=== PATIENT | female | born 1990 | race Caucasian/White ===

== ENCOUNTER → 2018-04-19 | Outpatient (CLI) | payer BC ==
[2018-04-19 10:00] LABS: URINE CREATININE FOR RATIO 41 MG/DL (30-125); URINE PROTEIN FOR RATIO ONLY < 6 MG/DL (6-12)
== END ==
LOC: LABNPT 08:50
PROVIDERS: ATTEND Obstetrics & Gynecology
DX: O28.8 Other abnormal findings on antenatal screening of mother (principal)
CPT/HCPCS: 82570; 84156

== ENCOUNTER 2018-04-25 04:54 | Inpatient (IN) | payer BC | END 2018-04-27 14:15 | disposition home or self-care (01) | LOC: WSo 04:54 → LDRP 04:55 → WSo 05:18 → LDRP 05:18 ==

== ENCOUNTER 2020-07-14 15:58 | Emergency (ER) | payer OTHER ==
[~2020-07-14] VITALS: Ht 172 cm; Wt 99.7 kg
[~2020-07-14 15:58] MED LIST: DOCU-143 PO; IBUP-1780 PO; OXYC1TAB87 PO; PREN-142 PO
--- NOTE | 2020-07-14 16:24 | ED GU-Female ---
General Chief Complaint: Female Reproductive Stated Complaint: RIGHT SIDE PAIN Source: patient Exam Limitations: no limitations History of Present Illness Date Seen by Provider: Jul 14, 2020 Time Seen by Provider: 16:15 Initial Comments 29-year-old G2, P1 at 28 weeks presents with right upper quadrant pain since this morning. Pain is persistent, wax and wanes with some mild associated nausea without vomiting. Her last bowel movement was yesterday. Denies any recent illness fever chills. Denies uterine cramping or loss of fluid or vaginal bleeding. Followed by OB in [place] Allergies and Home Medications Allergies Coded Allergies: No Known Drug Allergies (Unverified , 07/14/20) Patient Home Medication List Home Medication List Reviewed: Yes Review of Systems Review of Systems Constitutional: No fever, No malaise, No weakness Respiratory: No cough, No short of breath Cardiovascular: No chest pain, No edema, No palpitations, No syncope Gastrointestinal: RUQ, abdominal pain; No constipation, No diarrhea, No loss of appetite; nausea; No vomiting Genitourinary: denies dysuria, denies frequency, denies flank pain, denies hem aturia Musculoskeletal: No back pain, No joint pain Skin: No change in color, No rash Psychiatric/Neurological: Denies Headache, Denies Numbness, Denies Paresthesia Past Xiopkxk-Aoauej-Avlwqm Hx Past Med/Social Hx: Reviewed Nursing Past Med/Soc Hx Physical Exam Vital Signs Vital Signs - First Documented 07/14/20 16:20 Temp 36.9 Pulse 112 Resp 16 B/P (MAP) 145/87 (106) Pulse Ox 98 Capillary Refill : Height, Weight, BMI Height: '" Weight: lbs. oz. kg; BMI Method: General Appearance: WD/WN, no apparent distress Cardiovascular: regular rate, rhythm, no edema, no JVD Respiratory: chest non-tender, lungs clear, normal breath sounds, no respiratory distress, no accessory muscle use Gastrointestinal: soft, no organomegaly, no pulsatile mass; No distended, No guarding, No rebound; tenderness (RUQ); No mass Progress/Results/Core Measures Suspected Sepsis SIRS Temperature: Pulse: Respiratory Rate: Blood Pressure / Mean: Results/Orders Lab Results Laboratory Tests Test 07/14/20 16:00 Range/Units Urine Color YELLOW Urine Clarity SLIGHTLY CLOUDY Urine pH 6.0 5-9 Urine Specific [place] >=1.030 1.016-1.022 Urine Protein NEGATIVE NEGATIVE Urine Glucose (UA) NEGATIVE NEGATIVE Urine Ketones TRACE H NEGATIVE Urine Nitrite NEGATIVE NEGATIVE Urine Bilirubin NEGATIVE NEGATIVE Urine Urobilinogen 0.2 < = 1.0 MG/DL Urine Leukocyte Esterase NEGATIVE NEGATIVE Urine RBC (Auto) NEGATIVE NEGATIVE Urine RBC 0-2 /HPF Urine WBC 2-5 /HPF Urine Squamous Epithelial Cells 25-50 H /HPF Urine Crystals NONE /LPF Urine Bacteria FEW H /HPF Urine Casts NONE /LPF Urine Mucus LARGE H /LPF Urine Culture Indicated NO My Orders Orders - INDRA BIANCHI DO Urinalysis (07/14/20 16:35) Vital Signs/I&O 07/14/20 07/14/20 16:20 16:47 Temp 36.9 36.9 Pulse 112 112 Resp 16 16 B/P (MAP) 145/87 (106) 145/87 (106) Pulse Ox 98 98 Capillary Refill : Progress Note : Progress Note Called her OB and Dr fabrication operator for L&D, Dr Valenzuela- will consult through L&D. Patients transported via private vehicle. VSS, well appearing. HR- 140's Departure Impression Primary Impression: Abdominal pain in Qualified Codes: O26.892 - Other specified related conditions, second trimester; R10.9 - Unspecified abdominal pain Disposition: 30 STILL A PATIENT (transferring by POV to [facility] L&D) Condition: Stable Departure-Patient Inst. Referrals: ESTHELA MANCUSO MD (PCP/Family) Primary Care Physician INDRA BIANCHI DO Jul 14, 2020 16:23
[2020-07-14 16:37] LABS: CLARITY,URINE SLIGHTLY CLOUDY; COLOR,URINE YELLOW
[2020-07-14 16:38] LABS: BACTERIA,URINE FEW /HPF; BILIRUBIN,URINE NEGATIVE (NEGATIVE); GLUCOSE, URINE (UA) NEGATIVE (NEGATIVE); KETONES,URINE TRACE (NEGATIVE); LEUKOCYTE ESTERASE ,URINE NEGATIVE (NEGATIVE); NITRITE,URINE NEGATIVE (NEGATIVE); PROTEIN,URINE NEGATIVE (NEGATIVE); RBC,URINE 0-2 /HPF; SQUAMOUS EPITHELIAL CELL,UR 25-50 /HPF
[2020-07-14 16:47] VITALS: BP 145/87
== END 2020-07-14 16:47 | disposition still patient (30) ==
LOC: ER FS 16:02 → MERGE 16:02 → ER FS 16:47
DX: O26.892 Other specified pregnancy related conditions, second trimester (principal); R10.11 Right upper quadrant pain; Z3A.28 28 weeks gestation of pregnancy
CPT/HCPCS: 81000

== ENCOUNTER 2020-07-14 17:24 | Outpatient (CLI) | payer BC ==
[~2020-07-14] VITALS: Ht 170.2 cm; Wt 103.4 kg
[2020-07-14 17:45] VITALS: BP 110/63
[2020-07-14] MEDS ORDERED: DICYCLOMINE 10 MG (BENTYL) CAP PO ONE (18:15)
[2020-07-14 18:42] LABS: BASOPHILS % (AUTO) 0 % (0-10); EOSINOPHILS % (AUTO) 0 % (0-10); HEMATOCRIT 34 % (35-52); HEMOGLOBIN 11.5 g/dL (11.5-16.0); LYMPHOCYTES # (AUTO) 2.1 10^3/uL (1.0-4.0); LYMPHOCYTES % (AUTO) 19 % (12-44); MEAN CORPUSCULAR HEMOGLOBIN 30 pg (25-34); MEAN CORPUSCULAR HGB CONC 34 g/dL (32-36); MEAN CORPUSCULAR VOLUME 87 fL (80-99); MEAN PLATELET VOLUME 11.3 fL (9.0-12.2); MONOCYTES # (AUTO) 0.5 10^3/uL (0.0-1.0); MONOCYTES % (AUTO) 5 % (0-12); NEUTROPHILS # (AUTO) 8.2 10^3/uL (1.8-7.8); NEUTROPHILS % (AUTO) 75 % (42-75); PLATELET COUNT 214 10^3/uL (130-400); WHITE BLOOD COUNT 10.8 10^3/uL (4.3-11.0)
[2020-07-14 19:06] LABS: ALANINE AMINOTRANSFERASE 19 U/L (0-55); ALBUMIN 3.6 GM/DL (3.2-4.5); ALKALINE PHOSPHATASE 55 U/L (40-136); BILIRUBIN,TOTAL 0.2 MG/DL (0.1-1.0); BUN/CREATININE RATIO 10; CALCIUM 8.8 MG/DL (8.5-10.1); CARBON DIOXIDE 20 MMOL/L (21-32); CHLORIDE 107 MMOL/L (98-107); CREATININE SERUM 0.58 MG/DL (0.60-1.30); GFR ESTIMATED > 60; GLUCOSE 105 MG/DL (70-105); POTASSIUM 3.6 MMOL/L (3.6-5.0); SODIUM 140 MMOL/L (135-145); TOTAL PROTEIN 6.6 GM/DL (6.4-8.2)
--- NOTE | 2020-07-16 07:54 | Physician Query-Final Dx ---
ANKITA YAÑEZ 07/16/20 0754: Clinic Account Progress/Dx Physician Query: Please give diagnosis Please include # weeks gestation Date of Service Jul 14, 2020 at 17:24 VIVIANA PULIDO MD 07/16/20 1823: Clinic Account Progress/Dx DIAGNOSIS: Diagnosis False labor at 28 weeks gestation ANKITA YAÑEZ Jul 16, 2020 07:54 VIVIANA PULIDO MD Jul 16, 2020 18:23
== END 2020-07-14 20:15 | disposition home or self-care (01) ==
LOC: WSo 17:24 → MERGE 17:24 → LDRP 17:24 → WSo 20:15
PROVIDERS: ATTEND Obstetrics & Gynecology
DX: O26.893 Other specified pregnancy related conditions, third trimester (principal); Z3A.29 29 weeks gestation of pregnancy
CPT/HCPCS: 80053; 85025; 87210; G0463; 36415; 99214

== ENCOUNTER 2020-07-30 14:13 | Outpatient (CLI) | payer BC ==
[~2020-07-30] VITALS: Ht 172.7 cm; Wt 104.2 kg
[2020-07-30 14:02] VITALS: BP 115/63
[2020-07-30] MEDS ORDERED: DICY10CA12 PO (14:35)
[2020-07-30 14:42] LABS: BILIRUBIN,URINE NEGATIVE (NEGATIVE); CLARITY,URINE CLEAR; COLOR,URINE ORANGE; GLUCOSE, URINE (UA) NEGATIVE (NEGATIVE); KETONES,URINE 1+ (NEGATIVE); LEUKOCYTE ESTERASE ,URINE NEGATIVE (NEGATIVE); NITRITE,URINE NEGATIVE (NEGATIVE); PROTEIN,URINE TRACE (NEGATIVE)
[2020-07-30 15:00] LABS: BACTERIA,URINE NEGATIVE /HPF; WBC,URINE RARE /HPF
[2020-07-30] MEDS ORDERED: D5 LR IV SOLUTION 1,000 ML IV SCH ×2 (15:15→22:30)
[2020-07-30] MEDS ORDERED: BUTORPHANOL INJ 2 MG/ML (STADOL) VIAL IV ONE (15:15)
[2020-07-30] MEDS ORDERED: ONDANSETRON 4 MG/2 ML (SDV) Z0FRAN IVP ONE (15:15)
[2020-07-30 16:17] LABS: BASOPHILS % (AUTO) 0 % (0-10); EOSINOPHILS # (AUTO) 0.1 10^3/uL (0.0-0.3); EOSINOPHILS % (AUTO) 1 % (0-10); HEMATOCRIT 35 % (35-52); LYMPHOCYTES # (AUTO) 0.8 10^3/uL (1.0-4.0); LYMPHOCYTES % (AUTO) 6 % (12-44); MEAN CORPUSCULAR HEMOGLOBIN 30 pg (25-34); MEAN CORPUSCULAR HGB CONC 34 g/dL (32-36); MEAN CORPUSCULAR VOLUME 87 fL (80-99); MONOCYTES # (AUTO) 0.5 10^3/uL (0.0-1.0); MONOCYTES % (AUTO) 4 % (0-12); NEUTROPHILS % (AUTO) 88 % (42-75); PLATELET COUNT 201 10^3/uL (130-400); WHITE BLOOD COUNT 12.5 10^3/uL (4.3-11.0)
[2020-07-30 16:18] LABS: BILIRUBIN,URINE NEGATIVE (NEGATIVE); CLARITY,URINE SL CLOUDY; COLOR,URINE YELLOW; GLUCOSE, URINE (UA) NEGATIVE (NEGATIVE); KETONES,URINE 2+ (NEGATIVE); LEUKOCYTE ESTERASE ,URINE NEGATIVE (NEGATIVE); NITRITE,URINE NEGATIVE (NEGATIVE); PROTEIN,URINE TRACE (NEGATIVE)
[2020-07-30 16:25] LABS: BACTERIA,URINE TRACE /HPF; RBC,URINE 0-2 /HPF; SQUAMOUS EPITHELIAL CELL,UR 0-2 /HPF; WBC,URINE RARE /HPF
[2020-07-30 16:29] LABS: ALBUMIN 3.7 GM/DL (3.2-4.5); CHLORIDE 104 MMOL/L (98-107); POTASSIUM 3.3 MMOL/L (3.6-5.0); SODIUM 134 MMOL/L (135-145)
[2020-07-30 16:30] LABS: CALCIUM 8.1 MG/DL (8.5-10.1)
[2020-07-30 16:31] LABS: GLUCOSE 105 MG/DL (70-105)
[2020-07-30 16:32] LABS: TOTAL PROTEIN 6.9 GM/DL (6.4-8.2)
[2020-07-30 16:33] LABS: BILIRUBIN,TOTAL 0.3 MG/DL (0.1-1.0); CARBON DIOXIDE 20 MMOL/L (21-32)
[2020-07-30 16:35] LABS: ALKALINE PHOSPHATASE 65 U/L (40-136); BAND NEUTROPHILS 1 %; BASOPHILS % (MANUAL) 0 %; CREATININE SERUM 0.54 MG/DL (0.60-1.30); EOSINOPHILS % (MANUAL) 0 %; GFR ESTIMATED > 60; LYMPHOCYTES % (MANUAL) 6 %; MONOCYTES % (MANUAL) 2 %; NEUTROPHILS % (MANUAL) 91 %; RBC MORPH NORMAL
[2020-07-30 16:36] LABS: BUN/CREATININE RATIO 15
[2020-07-30 16:38] LABS: ALANINE AMINOTRANSFERASE 16 U/L (0-55)
[2020-07-30] MEDS ORDERED: LOPERAMIDE 2 MG (IMODIUM) TABLET PO NR (16:45)
[2020-07-30] MEDS: D5 LR IV SOLUTION 2,000 ML IV SCH ×2 (16:51→18:28)
[2020-07-30 17:02] VITALS: BP 111/64
[2020-07-30] MEDS: LOPERAMIDE 2 MG (IMODIUM) TABLET PO PRN ×2 (18:31→19:03)
[2020-07-30] MEDS ORDERED: ONDANSETRON 4 MG/2 ML (SDV) Z0FRAN IVP PRN (19:00)
--- NOTE | 2020-07-30 20:00 | History & Physical ---
History and Physical Date Seen by Provider: Jul 30, 2020 Time Seen by Provider: 18:40 30 y/o WF with history of GB dz adequatley controlled with oral Bentyl. Patient presents with c/o of unrelenting N/V and persistent diarrhea of rloose watery stools. No ROM, no bleeding, no CTX, frequent FM. Patient is admitted for Obs and supportive care with diagnosis of viral gstroenteritis, dehydration, and hyperemesis. Allegies: none Meds: PNV, Bentyl Medical, social, surgical, and Ob hisyories per the PNR Lab: Laboratory Tests Test 07/30/20 14:05 07/30/20 16:00 Range/Units Urine Color ORANGE YELLOW Urine Clarity CLEAR SL CLOUDY Urine pH 6.0 6.0 5-9 Urine Specific [place] >=1.030 >=1.030 1.016-1.022 Urine Protein TRACE H TRACE H NEGATIVE Urine Glucose (UA) NEGATIVE NEGATIVE NEGATIVE Urine Ketones 1+ H 2+ H NEGATIVE Urine Nitrite NEGATIVE NEGATIVE NEGATIVE Urine Bilirubin NEGATIVE NEGATIVE NEGATIVE Urine Urobilinogen 0.2 0.2 < = 1.0 MG/DL Urine Leukocyte Esterase NEGATIVE NEGATIVE NEGATIVE Urine RBC (Auto) NEGATIVE 1+ H NEGATIVE Urine RBC NONE 0-2 /HPF Urine WBC RARE RARE /HPF Urine Squamous Epithelial Cells 5-10 0-2 /HPF Urine Crystals NONE NONE /LPF Urine Bacteria NEGATIVE TRACE /HPF Urine Casts NONE NONE /LPF Urine Mucus SMALL H MODERATE H /LPF Urine Culture Indicated NO NO White Blood Count 12.5 H 4.3-11.0 10^3/uL Red Blood Count 4.04 3.80-5.11 10^6/uL Hemoglobin 12.0 11.5-16.0 g/dL Hematocrit 35 35-52 % Mean Corpuscular Volume 87 80-99 fL Mean Corpuscular Hemoglobin 30 25-34 pg Mean Corpuscular Hemoglobin Concent 34 32-36 g/dL Red Cell Distribution Width 13.3 10.0-14.5 % Platelet Count 201 130-400 10^3/uL Mean Platelet Volume 11.0 9.0-12.2 fL Immature Granulocyte % (Auto) 1 % Neutrophils (%) (Auto) 88 H 42-75 % Lymphocytes (%) (Auto) 6 L 12-44 % Monocytes (%) (Auto) 4 0-12 % Eosinophils (%) (Auto) 1 0-10 % Basophils (%) (Auto) 0 0-10 % Neutrophils # (Auto) 11.0 H 1.8-7.8 10^3/uL Lymphocytes # (Auto) 0.8 L 1.0-4.0 10^3/uL Monocytes # (Auto) 0.5 0.0-1.0 10^3/uL Eosinophils # (Auto) 0.1 0.0-0.3 10^3/uL Basophils # (Auto) 0.0 0.0-0.1 10^3/uL Immature Granulocyte # (Auto) 0.1 0.0-0.1 10^3/uL Neutrophils % (Manual) 91 % Lymphocytes % (Manual) 6 % Monocytes % (Manual) 2 % Eosinophils % (Manual) 0 % Basophils % (Manual) 0 % Band Neutrophils 1 % Blood Morphology Comment NORMAL Sodium Level 134 L 135-145 MMOL/L Potassium Level 3.3 L 3.6-5.0 MMOL/L Chloride Level 104 98-107 MMOL/L Carbon Dioxide Level 20 L 21-32 MMOL/L Anion Gap 10 5-14 MMOL/L Blood Urea Nitrogen 8 7-18 MG/DL Creatinine 0.54 L 0.60-1.30 MG/DL Estimat Glomerular Filtration Rate > 60 BUN/Creatinine Ratio 15 Glucose Level 105 70-105 MG/DL Calcium Level 8.1 L 8.5-10.1 MG/DL Corrected Calcium 8.3 L 8.5-10.1 MG/DL Total Bilirubin 0.3 0.1-1.0 MG/DL Aspartate Amino Transf (AST/SGOT) 14 5-34 U/L Alanine Aminotransferase (ALT/SGPT) 16 0-55 U/L Alkaline Phosphatase 65 40-136 U/L Total Protein 6.9 6.4-8.2 GM/DL Albumin 3.7 3.2-4.5 GM/DL Physical Exam: HEENT - wnl Neck - supple with no LA and no TM Cor - RR no Murmer Resp - CTAB Abd - gravid No GRR, diffusley slightly tender - hyperactive BS all 4 quadrants Ext - No CCE - no Homans Pvelvic - deferrer FM - reactive NST with No CTX A/P Viral gastroenteritis - plan supportive care as observation status viral gastroenteritis At 31 weeks gestation Allergies and Home Medications Allergies Coded Allergies: No Known Drug Allergies (Unverified , 04/25/18) Home Medications Dicyclomine HCl 10 Mg Capsule, 10 MG PO ACHS, (Reported) Last Action: Reviewed Vit No.124/Iron/FA 1 Each Tablet, 1 EACH PO DAILY, (Reported) Last Action: Reviewed Patient Home Medication List Home Medication List Reviewed: Yes VIVIANA PULIDO MD Jul 30, 2020 20:00
[2020-07-30 20:37] VITALS: BP 100/51
== END 2020-07-30 20:52 | disposition home or self-care (01) ==
LOC: LDRP 14:13 → WSo 14:13
PROVIDERS: ATTEND Obstetrics & Gynecology
DX: O26.893 Other specified pregnancy related conditions, third trimester (principal); Z3A.31 31 weeks gestation of pregnancy
CPT/HCPCS: 36415; 80053; 81000; 85007; 85027; 87015; 87045; 87046; 87088; 87324; 87449; 87899

== ENCOUNTER 2020-09-21 07:23 | Inpatient (IN) | payer BC ==
[2020-09-21] VITALS (65 sets, daily range): BP systolic 92–138; BP diastolic 50–77
[~2020-09-21 07:23] MED LIST changes: +DICY10CA12 PO
[2020-09-21] MEDS ORDERED: AMPICILLIN 2,000 MG/14.8 ML (IV USE) ONE (08:09)
[2020-09-21] MEDS ORDERED: WATER (STERILE) FOR INJECTION 20 ML ONE (08:09)
--- NOTE | 2020-09-21 08:14 | History & Physical ---
History and Physical Date Seen by Provider: Sep 21, 2020 Time Seen by Provider: 08:12 This patient is a 30-year-old 2 para 1 female who presents for induction of labor. Her is complicated by marginal placenta previa. She has had some spotting or bleeding off and on for the . She is GBS positive. Decision made to proceed with admission and induction rather than risk significant bleeding with spontaneous labor outside. Patient GBS culture was positive and should be started on antibiotics on admission. Patient denies rupture membranes but does have some persistent spotting. Allergies are none Medications are vitamins Medical social and surgical history is all per the antepartum record HEENT exam is normal Neck is supple no lymphadenopathy no thyromegaly Abdomen is gravid soft nontender nondistended Extremities show no clubbing cyanosis. There is no Homans' sign. Pelvic exam shows a cervix 3 cm dilated 80% effaced vertex presentation at -1 station. Assessment and plan term at 38 weeks plus gestation plan is for induction of labor due to marginal placenta previa to allow for immediate access in the case or event of significant bleeding. Patient also will be started on ampicillin for GBS prophylaxis 38 weeks with marginal placenta previa and GBS positive culture Allergies and Home Medications Allergies Coded Allergies: No Known Drug Allergies (Unverified , 04/25/18) Home Medications Dicyclomine HCl 10 Mg Capsule, 10 MG PO ACHS, (Reported) Vit No.124/Iron/FA 1 Each Tablet, 1 EACH PO DAILY, (Reported) Patient Home Medication List Home Medication List Reviewed: Yes VIVIANA PULIDO MD Sep 21, 2020 08:14
[2020-09-21] MEDS ORDERED: OXYTOCIN PRE-MIX DRIP 500 ML IV SCH ×2 (08:15→20:45)
[2020-09-21] MEDS ORDERED: AMPICILLIN FOR IV USE 2,000 MG in WATER (STERILE) FOR INJECTION 14.8 ML IV ONE (08:15)
[2020-09-21] MEDS ORDERED: fentaNYL 2 mcg/ml BUPIVA 0.125 100 ML ONE (08:44)
[2020-09-21 08:57] LABS: BASOPHILS % (AUTO) 0 % (0-10); EOSINOPHILS # (AUTO) 0.1 10^3/uL (0.0-0.3); EOSINOPHILS % (AUTO) 1 % (0-10); HEMATOCRIT 36 % (35-52); HEMOGLOBIN 12.4 g/dL (11.5-16.0); LYMPHOCYTES # (AUTO) 1.8 10^3/uL (1.0-4.0); LYMPHOCYTES % (AUTO) 16 % (12-44); MEAN CORPUSCULAR HEMOGLOBIN 30 pg (25-34); MEAN CORPUSCULAR HGB CONC 35 g/dL (32-36); MEAN CORPUSCULAR VOLUME 85 fL (80-99); MEAN PLATELET VOLUME 12.3 fL (9.0-12.2); MONOCYTES # (AUTO) 0.6 10^3/uL (0.0-1.0); MONOCYTES % (AUTO) 5 % (0-12); NEUTROPHILS # (AUTO) 8.7 10^3/uL (1.8-7.8); NEUTROPHILS % (AUTO) 78 % (42-75); PLATELET COUNT 233 10^3/uL (130-400); WHITE BLOOD COUNT 11.1 10^3/uL (4.3-11.0)
[2020-09-21] MEDS ORDERED: fentaNYL INJ 100 MCG/2 ML AMP ONE (09:01)
[2020-09-21] MEDS ORDERED: BUPIVACAINE 0.25% 30 ML (SENSORCAINE) VIAL ONE (09:01)
[2020-09-21] MEDS: D5 LR IV SOLUTION 1,000 ML IV SCH ×2 (09:09→16:04)
[2020-09-21] MEDS ORDERED: fentaNYL 2 mcg/ml BUPIVA 0.125 100 ML IV SCH (09:15)
[2020-09-21] MEDS ORDERED: ONDANSETRON 4 MG/2 ML (SDV) Z0FRAN IV PRN (09:15)
[2020-09-21] MEDS ORDERED: CATHETER FLUSH 10 ML SYR IV PRN (09:15)
[2020-09-21] MEDS ORDERED: LACTATED RINGERS 1,000 ML IV ONE (09:15)
[2020-09-21] MEDS ORDERED: NALOXONE 0.4 MG/ML 1 ML (NARCAN) VIAL IV PRN (09:15)
[2020-09-21] MEDS ORDERED: diphenhydrAMINE 50 MG/ML INJ (BENADRYL) IV PRN (09:15)
[2020-09-21] MEDS ORDERED: DOCU-143 PO (10:53)
[2020-09-21] MEDS ORDERED: IBUP-1780 PO (10:53)
[2020-09-21] MEDS ORDERED: OXYC1TAB87 PO ×2 (10:53→17:52)
--- NOTE | 2020-09-21 10:54 | Discharge Inst-Surgical ---
Discharge Inst-Surgical Depart Medication/Instructions New, Converted or Re-Newed RX: RX on Chart Consults/Follow Up Patient Instructions: As directed Orders & Referrals Follow Up Appt: Call to make follow up appt. for patient in 4 weeks. Activity Per routine post vaginal delivery instructions. Please call in RX to patient pharmacy. Diet as tolerated Patient may shower or tub bathe as desired. Activity Activity as Tolerated: No Diet Discharge Diet: No Restrictions VIVIANA PULIDO MD Sep 21, 2020 10:54
[2020-09-21] MEDS: AMPICILLIN FOR IV USE 1,000 MG in WATER (STERILE) FOR INJECTION 7.4 ML IV SCH ×2 (12:36→16:41)
[2020-09-21] MEDS ORDERED: LIDOCAINE 1% INJ 20 ML 20 ML VIAL ONE (17:33)
[2020-09-21] MEDS ORDERED: ONDANSETRON 4 MG/2 ML (SDV) Z0FRAN IVP PRN (20:45)
[2020-09-21] MEDS ORDERED: oxyCODONE/APAP 5/325MG (PERCOCET 5) TABLET PO PRN (20:45)
[2020-09-21] MEDS ORDERED: TETANUS,DIPTH,PERTUSS P/F (BOOSTRIX) 0.5 ML VIAL IM ONE (20:45)
[2020-09-21] MEDS ORDERED: BENZOCAINE/MENTHOL (DERMOPLAST) 56 ML CAN TP ONE (21:20)
[2020-09-21] MEDS ORDERED: WITCH HAZEL(TUCKS) 40 EA JAR ONE (21:20)
[2020-09-21] MEDS ORDERED: DOCUSATE SODIUM 100 MG (COLACE) CAP PO ONE (21:20)
[2020-09-21] MEDS ORDERED: KETOROLAC 30 MG/ML VIAL ONE (21:20)
[2020-09-21] MEDS: BENZOCAINE/MENTHOL (DERMOPLAST) 56 ML CAN TP PRN (21:24)
[2020-09-21] MEDS: KETOROLAC 30 MG/ML VIAL IVP SCH (21:24)
[2020-09-21] MEDS: DOCUSATE SODIUM 100 MG (COLACE) CAP PO SCH (21:24)
[2020-09-21] MEDS: WITCH HAZEL(TUCKS) 40 EA JAR TOP PRN (21:25)
[2020-09-22 00:30] VITALS: BP 114/65
[2020-09-22 05:48] VITALS: BP 114/65
[2020-09-22] MEDS: KETOROLAC 30 MG/ML VIAL IVP SCH (05:48)
[2020-09-22] MEDS ORDERED: MEASLES,MUMPS,RUBELLA 1 EA INJ SC ONE (07:30)
--- NOTE | 2020-09-22 07:56 | Progress Note ---
Standard Progress Note Progress Notes/Assess & Plan Date Seen by a Provider: Sep 22, 2020 Time Seen by a Provider: 07:55 Progress/Assessment & Plan This patient is without complaint. She is ambulating, voiding, tolerating oral intake well and has good pain control. Vital Signs 09/22/20 05:48 Temp 36.3 Pulse 82 Resp 18 B/P (MAP) 114/65 (81) Pulse Ox 98 O2 Delivery Room Air Vital signs are stable. Patient is afebrile. Fundus is firm below the umbilicus and nontender. Extremities show no clubbing or cyanosis. There is no Homans' sign. Assessment and plan day 1 status post term spontaneous vaginal delivery doing well. Plan is for routine convalescent care Final Diagnosis 38-week spontaneous vaginal delivery VIVIANA PULIDO MD Sep 22, 2020 07:56
[2020-09-22 08:30] VITALS: BP 91/49
--- NOTE | 2020-09-22 09:23 | Anesthesia-Regional Post-Op ---
Regional Patient Condition Mental Status: Alert, Oriented x3 Circulation: Same as Pre-Op Headache: Absent Sensation: Full Recovery Motor Block: Absent Post Op Complications Complications None Follow Up Care/Instructions Patient Instructions None needed. Anesthesia/Patient Condition Patient is doing well, no complaints, stable vital signs, no apparent adverse anesthesia problems. No complications reported per nursing. PEDRO QUILES CRNA Sep 22, 2020 09:23
[2020-09-22] MEDS ORDERED: IBUPROFEN 600 MG (MOTRIN) TAB PO ONE (11:59)
[2020-09-22] MEDS ORDERED: IBUPROFEN 800 MG (MOTRIN) TAB PO ONE (12:03)
[2020-09-22] MEDS: DOCUSATE SODIUM 100 MG (COLACE) CAP PO SCH ×2 (12:04→21:54)
[2020-09-22] MEDS: IBUPROFEN 800 MG (MOTRIN) TAB PO SCH ×3 (12:12→23:35)
[2020-09-22 13:52] VITALS: BP 108/63
--- NOTE | 2020-09-22 15:08 | OPERATIVE REPORT ---
DATE OF SERVICE: 09/21/2020 DELIVERY NOTE The patient delivered by term spontaneous vaginal delivery a viable male with Apgars of 8 and 9 at 1 and 5 minutes respectively, weight of 5 pounds 15 ounces. time of 1853 and a cord blood pH that is pending. The infant was delivered over a first-degree perineal laceration under epidural analgesia. The was bulb suctioned on delivery of the head and again on completion of delivery. The umbilical cord was doubly clamped, the father cut the cord, the baby was passed to mom's abdomen. The placenta delivered fairly promptly spontaneously Love. It was normal with a 3-vessel cord. The cervix, vagina, rectum, and perineum were examined and found intact, except for a small first-degree posterior fourchette laceration of approximately 2 cm. This was repaired with a single suture of 3-0 Vicryl Rapide in the usual manner for a superficial laceration. Hemostasis was complete. Good reapproximation was achieved. Sponge and needle counts were correct on completion of the delivery and the repair. The patient tolerated the delivery and the repair well and remained in the LDR. The baby remained with the mother. Sponge and needle counts again were complete. Blood loss was around 250 mL. Job ID: [id number] DocumentID: [id number] Dictated Date: 09/22/2020 08:00:45 Tanker Service Attendant Date: 09/22/2020 15:08:22 Dictated By: VIVIANA PULIDO MD
[2020-09-22 16:25] VITALS: BP 102/58
[2020-09-22] MEDS: WITCH HAZEL(TUCKS) 40 EA JAR TOP PRN (18:05)
[2020-09-22 23:35] VITALS: BP 104/57
[2020-09-23 05:22] VITALS: BP 115/55
[2020-09-23] MEDS: IBUPROFEN 800 MG (MOTRIN) TAB PO SCH (05:22)
--- NOTE | 2020-09-23 08:55 | Postpartum Progress Note ---
Note Note Day # 2 Subjective: This is a patient I am rounding on for Dr. Valenzuela. She is s/p day 2. Patient is without complaints. Ambulating, voiding. Tolerating a regular diet without nausea or vomiting. Normal lochia. Pain is well controlled with oral pain medications. Objective: Physical Exam: General - Alert and oriented, no apparent distress Abdomen - Soft, appropriately tender to palpation, non-distended, fundus firm at umbilicus Extremities - no edema, negative Malena's bilaterally Assessment: PPD 2 Plan: Routine care. Encourage breast feeding. Encourage ambulation. Ferrous sulfate supplementation. Plan for discharge today Vitals - Labs Vital Signs - I&O Vital Signs Date Time Temp Pulse Resp B/P (MAP) Pulse Ox O2 Delivery O2 Flow Rate FiO2 09/23/20 05:22 36.3 65 18 115/55 (75) 98 Room Air 09/22/20 23:35 36.0 66 18 104/57 (73) 98 Room Air 09/22/20 16:25 35.9 63 18 102/58 (73) 95 Room Air 09/22/20 13:52 36.2 83 18 108/63 (78) 98 Room Air JESSICA GARCIA DO Sep 23, 2020 08:55
[2020-09-23 09:50] VITALS: BP 106/73
[2020-09-23] MEDS: DOCUSATE SODIUM 100 MG (COLACE) CAP PO SCH (09:54)
[2020-09-23] MEDS: WITCH HAZEL(TUCKS) 40 EA JAR TOP PRN (10:30)
[2020-09-23] MEDS: BENZOCAINE/MENTHOL (DERMOPLAST) 56 ML CAN TP PRN (10:30)
== END 2020-09-23 11:50 | disposition home or self-care (01) | DRG 807 ==
LOC: LDRP 07:23
PROVIDERS: ADMIT Obstetrics & Gynecology; ATTEND Obstetrics & Gynecology
PROC: 10E0XZZ Delivery of Products of Conception, External Approach (ICD-10-PCS; principal; 2020-09-21)
PROC: 0HQ9XZZ Repair Perineum Skin, External Approach (ICD-10-PCS; 2020-09-21)
DX: O44.23 Partial placenta previa NOS or without hemorrhage, third trimester (principal); Z37.0 Single live birth; Z3A.38 38 weeks gestation of pregnancy; O99.824 Streptococcus B carrier state complicating childbirth; O70.0 First degree perineal laceration during delivery
CPT/HCPCS: 36415; 85025; 86850; 86900; 86901

== ENCOUNTER 2020-10-06 13:28 | Emergency (ER) | payer BC ==
[~2020-10-06] VITALS: Ht 172.7 cm; Wt 99.8 kg
[2020-10-06 13:30] VITALS: BP 137/81
--- NOTE | 2020-10-06 13:42 | ED Abdominal Pain ---
General Stated Complaint: UPPER RT ABD PAIN History of Present Illness Date Seen by Provider: Oct 06, 2020 Time Seen by Provider: 13:40 Initial Comments 30-year-old female presents with upper abdominal pain. Patient reports that as a bandlike cramping that radiates into her back. Patient reports that she is 2 weeks . That during her she did have issues with her gallbladder. She had an episode of vomiting. The pain started about 20 minutes prior to arrival. She had had some pain earlier today that resolved after she was done breast-feeding. She is not having constipation or diarrhea. She does not report any fevers or chills. No cough. No other systemic complaints. Allergies and Home Medications Allergies Coded Allergies: No Known Drug Allergies (Unverified , 04/25/18) Home Medications Docusate Sodium 100 Mg Capsule, 100 MG PO BID Prescribed by: VIVIANA PALACIOS on 09/21/20 1053 Ibuprofen 800 Mg Tablet, 800 MG PO Q6H PRN for PAIN Prescribed by: VIVIANA PALACIOS on 09/21/20 1053 Oxycodone HCl/Acetaminophen 1 Each Tablet, 1 TAB PO Q4H Prescribed by: VIVIANA PALACIOS on 09/21/20 1053 Oxycodone HCl/Acetaminophen 1 Each Tablet, 1 TAB PO Q4H Prescribed by: VIVIANA PALACIOS on 09/21/20 1752 Vit No.124/Iron/FA 1 Each Tablet, 1 EACH PO DAILY, (Reported) Patient Home Medication List Home Medication List Reviewed: Yes Review of Systems Review of Systems Constitutional: No chills, No fever Respiratory: Denies Cough, Denies Shortness of Air Cardiovascular: Denies Chest Pain, Denies Irregular Heart Rate Gastrointestinal: Abdominal Pain; Denies Constipated, Denies Diarrhea; Nausea, Vomiting Musculoskeletal: no symptoms reported Skin: no symptoms reported Psychiatric/Neurological: No Symptoms Reported Endocrine: No Symptoms Reported Past Xupxtsi-Kgkpop-Xjpuxu Hx Past Med/Social Hx: Reviewed Nursing Past Med/Soc Hx Patient Social History 2nd Hand Smoke Exposure: No Recent Hopitalizations: No Immunizations Up To Date Date of Influenza Vaccine: Feb 21, 2020 Seasonal Allergies Seasonal Allergies: No Past Medical History Surgeries: No Respiratory: No Cardiac: No Neurological: No Genitourinary: No Gastrointestinal: No Musculoskeletal: No Endocrine: No HEENT: No Cancer: No Psychosocial: No Integumentary: No Blood Disorders: No Adverse Reaction/Blood Tranf: No Family Medical History Patient reports no known family medical history. Physical Exam Vital Signs Vital Signs - First Documented 10/06/20 13:30 Temp 36.8 Pulse 77 Resp 16 B/P (MAP) 137/81 (99) Pulse Ox 96 O2 Delivery Room Air Capillary Refill : Height/Weight/BMI Height: 5'8.00" Weight: 224lbs. 0.0oz. 101.143325hp; 34.93 BMI Method: General Appearance: mild distress Respiratory: lungs clear, normal breath sounds Cardiovascular: normal peripheral pulses, regular rate, rhythm Gastrointestinal: No guarding; tenderness (Mild upper abdomen) Extremities: normal range of motion Back: normal inspection, no CVA tenderness Neurologic/Psychiatric: alert, normal mood/affect, oriented x 3 Progress/Results/Core Measures Results/Orders Lab Results Laboratory Tests Test 10/06/20 13:40 Range/Units White Blood Count 7.8 4.3-11.0 10^3/uL Red Blood Count 4.54 4.35-5.85 10^6/uL Hemoglobin 13.2 11.5-16.0 G/DL Hematocrit 38 35-52 % Mean Corpuscular Volume 84 80-99 FL Mean Corpuscular Hemoglobin 29 25-34 PG Mean Corpuscular Hemoglobin Concent 35 32-36 G/DL Red Cell Distribution Width 12.4 10.0-14.5 % Platelet Count 267 130-400 10^3/uL Mean Platelet Volume 11.6 H 7.4-10.4 FL Immature Granulocyte % (Auto) 0 % Neutrophils (%) (Auto) 56 42-75 % Lymphocytes (%) (Auto) 34 12-44 % Monocytes (%) (Auto) 8 0-12 % Eosinophils (%) (Auto) 2 0-10 % Basophils (%) (Auto) 0 0-10 % Neutrophils # (Auto) 4.4 1.8-7.8 X 10^3 Lymphocytes # (Auto) 2.7 1.0-4.0 X 10^3 Monocytes # (Auto) 0.6 0.0-1.0 X 10^3 Eosinophils # (Auto) 0.1 0.0-0.3 10^3/uL Basophils # (Auto) 0.0 0.0-0.1 10^3/uL Immature Granulocyte # (Auto) 0.0 0.0-0.1 10^3/uL Sodium Level 141 135-145 MMOL/L Potassium Level 3.9 3.6-5.0 MMOL/L Chloride Level 105 98-107 MMOL/L Carbon Dioxide Level 25 21-32 MMOL/L Anion Gap 11 5-14 MMOL/L Blood Urea Nitrogen 10 7-18 MG/DL Creatinine 0.61 0.60-1.30 MG/DL Estimat Glomerular Filtration Rate > 60 BUN/Creatinine Ratio 16 Glucose Level 93 70-105 MG/DL Calcium Level 9.0 8.5-10.1 MG/DL Corrected Calcium 8.9 8.5-10.1 MG/DL Total Bilirubin 0.2 0.1-1.0 MG/DL Aspartate Amino Transf (AST/SGOT) 28 5-34 U/L Alanine Aminotransferase (ALT/SGPT) 29 0-55 U/L Alkaline Phosphatase 70 40-136 U/L Total Protein 6.9 6.4-8.2 GM/DL Albumin 4.1 3.2-4.5 GM/DL Lipase 21 8-78 U/L My Orders Orders - AJ,RONALD L DO Cbc With Automated Diff (10/06/20 13:43) Comprehensive Metabolic Panel (10/06/20 13:43) Lipase (10/06/20 13:43) Abdomen (Kub) 1 View (10/06/20 13:43) Ns Iv 1000 Ml (Sodium Chloride 0.9%) (10/06/20 13:43) Famotidine Injection (Pepcid Injection) (10/06/20 13:43) Vital Signs/I&O 10/06/20 13:30 Temp 36.8 Pulse 77 Resp 16 B/P (MAP) 137/81 (99) Pulse Ox 96 O2 Delivery Room Air Progress Progress Note : Progress Note Patient with no acute findings on x-ray or labs. She does have some moderate stool burden. On exam there is no signs of right upper quadrant pain or Rincon's sign. Discussed with patient that she should follow with her primary care provider next week for an outpatient gallbladder ultrasound and further evaluation. She use Tylenol ibuprofen as needed for pain. Recommend she start some Pepcid for potential gastritis. Patient stable and discharged home Diagnostic Imaging Diagonstic Imaging: Xray Plain Films/CT/US/NM/MRI: abdomen Comments ate of Exam:10/06/20 ABDOMEN (KUB) 1 VIEW EXAMINATION: Abdomen 1 view HISTORY: Abdominal pain COMPARISON: None available. FINDINGS: There is a moderate amount of gas and stool throughout the colon. Nonobstructive bowel gas pattern. No radiopaque foreign body. The osseous structures are intact. IMPRESSION: Moderate stool burden without other acute abnormality in the abdomen. Departure Impression Primary Impression: Abdominal pain Qualified Codes: R10.13 - Epigastric pain Additional Impression: Constipation Qualified Codes: K59.00 - Constipation, unspecified Disposition: HOME, SELF-CARE Condition: Stable Departure-Patient Inst. Referrals: VIVIANA PULIDO MD (PCP/Family) Primary Care Physician Patient Instructions: Abdominal Pain, Adult ED, Constipation, Adult ED Add. Discharge Instructions: Follow-up with your primary care provider next week for further evaluation and potential right upper quadrant ultrasound Drink plenty of fluids, increase fiber in your diet, MiraLAX as needed RONALD AJ DO Oct 06, 2020 13:42
[2020-10-06] MEDS ORDERED: NS IV 1000 ML 1,000 ML IV STA (13:43)
[2020-10-06] MEDS ORDERED: FAMOTIDINE 20MG/2ML IV (PEPCID) IV STA (13:43)
[2020-10-06 13:46] LABS: BASOPHILS % (AUTO) 0 % (0-10); EOSINOPHILS # (AUTO) 0.1 10^3/uL (0.0-0.3); EOSINOPHILS % (AUTO) 2 % (0-10); HEMATOCRIT 38 % (35-52); HEMOGLOBIN 13.2 G/DL (11.5-16.0); LYMPHOCYTES # (AUTO) 2.7 X 10^3 (1.0-4.0); LYMPHOCYTES % (AUTO) 34 % (12-44); MEAN CORPUSCULAR HEMOGLOBIN 29 PG (25-34); MEAN CORPUSCULAR HGB CONC 35 G/DL (32-36); MEAN CORPUSCULAR VOLUME 84 FL (80-99); MEAN PLATELET VOLUME 11.6 FL (7.4-10.4); MONOCYTES # (AUTO) 0.6 X 10^3 (0.0-1.0); MONOCYTES % (AUTO) 8 % (0-12); NEUTROPHILS # (AUTO) 4.4 X 10^3 (1.8-7.8); NEUTROPHILS % (AUTO) 56 % (42-75); PLATELET COUNT 267 10^3/uL (130-400); WHITE BLOOD COUNT 7.8 10^3/uL (4.3-11.0)
[2020-10-06 14:04] LABS: ALANINE AMINOTRANSFERASE 29 U/L (0-55); ALBUMIN 4.1 GM/DL (3.2-4.5); ALKALINE PHOSPHATASE 70 U/L (40-136); BILIRUBIN,TOTAL 0.2 MG/DL (0.1-1.0); BUN/CREATININE RATIO 16; CARBON DIOXIDE 25 MMOL/L (21-32); CHLORIDE 105 MMOL/L (98-107); CREATININE SERUM 0.61 MG/DL (0.60-1.30); GFR ESTIMATED > 60; GLUCOSE 93 MG/DL (70-105); LIPASE 21 U/L (8-78); POTASSIUM 3.9 MMOL/L (3.6-5.0); SODIUM 141 MMOL/L (135-145); TOTAL PROTEIN 6.9 GM/DL (6.4-8.2)
--- NOTE | 2020-10-06 14:06 | Diagnostic Imaging Report ---
EXAMINATION: Abdomen 1 view HISTORY: Abdominal pain COMPARISON: None available. FINDINGS: There is a moderate amount of gas and stool throughout the colon. Nonobstructive bowel gas pattern. No radiopaque foreign body. The osseous structures are intact. IMPRESSION: Moderate stool burden without other acute abnormality in the abdomen. Dictated by: Dictated on workstation # [id number]
[2020-10-07] MEDS ORDERED: OXYC5TAB PO (19:42)
[2020-10-07] MEDS ORDERED: ONDA8TAB13 PO (19:44)
== END 2020-10-06 14:33 | disposition home or self-care (01) ==
LOC: EDUNIT# 13:28 → ER FS 13:35
DX: R10.10 Upper abdominal pain, unspecified (principal); K59.00 Constipation, unspecified
CPT/HCPCS: 36415; 74018; 80053; 83690; 85025

== ENCOUNTER 2020-10-07 18:50 | Emergency (ER) | payer BC ==
[~2020-10-07] VITALS: Ht 172.7 cm; Wt 100.0 kg
[2020-10-07] MEDS ORDERED: KETOROLAC 30 MG/ML VIAL IVP ONE (19:00)
[2020-10-07] MEDS ORDERED: NS IV 1000 ML 1,000 ML IV SCH (19:00)
[2020-10-07] MEDS ORDERED: ONDANSETRON 4 MG/2 ML (SDV) Z0FRAN IVP ONE (19:00)
[2020-10-07] MEDS ORDERED: fentaNYL INJ 100 MCG/2 ML AMP IVP ONE (19:00)
--- NOTE | 2020-10-07 19:04 | ED Abdominal Pain ---
General Chief Complaint: Abdominal/GI Problems Stated Complaint: UPPER ABD PAIN Source of Information: Patient Exam Limitations: No Limitations History of Present Illness Date Seen by Provider: Oct 07, 2020 Time Seen by Provider: 19:02 Initial Comments To ER by private vehicle with reports of right upper quadrant abdominal pain that has been intermittent during her . She is now but the pain is worse and associated with nausea. No fevers or chills. She was seen at [place] emergency room last night. Timing/Duration: 1-2 Days Severity/Quality: Moderate, Severe Location: RUQ Radiation: No Radiation Activities at Onset: None Associated Symptoms: Nausea/Vomiting Allergies and Home Medications Allergies Coded Allergies: No Known Drug Allergies (Unverified , 04/25/18) Home Medications Docusate Sodium 100 Mg Capsule, 100 MG PO BID Prescribed by: VIVIANA PALACIOS on 09/21/20 1053 Ibuprofen 800 Mg Tablet, 800 MG PO Q6H PRN for PAIN Prescribed by: VIVIANA PALACIOS on 09/21/20 1053 Oxycodone HCl/Acetaminophen 1 Each Tablet, 1 TAB PO Q4H Prescribed by: VIVIANA PALACIOS on 09/21/20 1053 Oxycodone HCl/Acetaminophen 1 Each Tablet, 1 TAB PO Q4H Prescribed by: VIVIANA PALACIOS on 09/21/20 1752 Vit No.124/Iron/FA 1 Each Tablet, 1 EACH PO DAILY, (Reported) Patient Home Medication List Home Medication List Reviewed: Yes Review of Systems Review of Systems Constitutional: see HPI EENTM: No Symptoms Reported Respiratory: No Symptoms Reported Cardiovascular: No Symptoms Reported Gastrointestinal: See HPI Genitourinary: No Symptoms Reported Musculoskeletal: no symptoms reported Skin: no symptoms reported Psychiatric/Neurological: No Symptoms Reported Endocrine: No Symptoms Reported Hematologic/Lymphatic: No Symptoms Reported Past Ndxisae-Hltccd-Hvnncr Hx Patient Social History 2nd Hand Smoke Exposure: No Recent Hopitalizations: No Immunizations Up To Date Tetanus Booster (TDap): Unknown Date of Influenza Vaccine: Feb 21, 2020 Seasonal Allergies Seasonal Allergies: No Past Medical History Surgeries: No Respiratory: No Cardiac: No Neurological: No Genitourinary: No Gastrointestinal: No Musculoskeletal: No Endocrine: No HEENT: No Cancer: No Psychosocial: No Integumentary: No Blood Disorders: No Adverse Reaction/Blood Tranf: No Family Medical History Patient reports no known family medical history. Physical Exam Vital Signs Vital Signs - First Documented 10/07/20 18:54 Temp 36.6 Pulse 77 Resp 16 B/P (MAP) 125/81 (96) Pulse Ox 97 O2 Delivery Room Air Capillary Refill : Height/Weight/BMI Height: 5'8.00" Weight: 224lbs. 0.0oz. 101.432738pp; 33.00 BMI Method: General Appearance: WD/WN, no apparent distress Respiratory: no respiratory distress, no accessory muscle use Cardiovascular: regular rate, rhythm, no murmur Gastrointestinal: normal bowel sounds, soft, tenderness Extremities: normal range of motion, non-tender Neurologic/Psychiatric: alert, oriented x 3 Skin: normal color, warm/dry Progress/Results/Core Measures Results/Orders Lab Results Laboratory Tests Test 10/07/20 19:00 10/07/20 19:05 Range/Units Urine Color YELLOW Urine Clarity CLEAR Urine pH 6.0 5-9 Urine Specific [place] 1.015 L 1.016-1.022 Urine Protein NEGATIVE NEGATIVE Urine Glucose (UA) NEGATIVE NEGATIVE Urine Ketones NEGATIVE NEGATIVE Urine Nitrite NEGATIVE NEGATIVE Urine Bilirubin NEGATIVE NEGATIVE Urine Urobilinogen 0.2 < = 1.0 MG/DL Urine Leukocyte Esterase 1+ H NEGATIVE Urine RBC (Auto) 2+ H NEGATIVE Urine RBC 6-10 /HPF Urine WBC 2-5 /HPF Urine Squamous Epithelial Cells 0-2 /HPF Urine Crystals NONE /LPF Urine Bacteria FEW H /HPF Urine Casts NONE /LPF Urine Mucus SMALL H /LPF Urine Culture Indicated YES White Blood Count 11.1 H 4.3-11.0 10^3/uL Red Blood Count 4.64 3.80-5.11 10^6/uL Hemoglobin 13.4 11.5-16.0 g/dL Hematocrit 40 35-52 % Mean Corpuscular Volume 86 80-99 fL Mean Corpuscular Hemoglobin 29 25-34 pg Mean Corpuscular Hemoglobin Concent 33 32-36 g/dL Red Cell Distribution Width 12.5 10.0-14.5 % Platelet Count 285 130-400 10^3/uL Mean Platelet Volume 11.5 9.0-12.2 fL Immature Granulocyte % (Auto) 1 % Neutrophils (%) (Auto) 73 42-75 % Lymphocytes (%) (Auto) 19 12-44 % Monocytes (%) (Auto) 5 0-12 % Eosinophils (%) (Auto) 3 0-10 % Basophils (%) (Auto) 0 0-10 % Neutrophils # (Auto) 8.1 H 1.8-7.8 10^3/uL Lymphocytes # (Auto) 2.1 1.0-4.0 10^3/uL Monocytes # (Auto) 0.5 0.0-1.0 10^3/uL Eosinophils # (Auto) 0.3 0.0-0.3 10^3/uL Basophils # (Auto) 0.0 0.0-0.1 10^3/uL Immature Granulocyte # (Auto) 0.1 0.0-0.1 10^3/uL Sodium Level 141 135-145 MMOL/L Potassium Level 3.6 3.6-5.0 MMOL/L Chloride Level 105 98-107 MMOL/L Carbon Dioxide Level 23 21-32 MMOL/L Anion Gap 13 5-14 MMOL/L Blood Urea Nitrogen 10 7-18 MG/DL Creatinine 0.80 0.60-1.30 MG/DL Estimat Glomerular Filtration Rate > 60 BUN/Creatinine Ratio 13 Glucose Level 97 70-105 MG/DL Calcium Level 8.9 8.5-10.1 MG/DL Corrected Calcium 9.0 8.5-10.1 MG/DL Total Bilirubin 0.3 0.1-1.0 MG/DL Aspartate Amino Transf (AST/SGOT) 75 H 5-34 U/L Alanine Aminotransferase (ALT/SGPT) 59 H 0-55 U/L Alkaline Phosphatase 85 40-136 U/L Total Protein 7.1 6.4-8.2 GM/DL Albumin 3.9 3.2-4.5 GM/DL Lipase 25 8-78 U/L My Orders Orders - DANIELLE WAGNER QUILL CLEANING MACHINE OPERATOR Cbc With Automated Diff (10/07/20 18:59) Comprehensive Metabolic Panel (10/07/20 18:59) Lipase (10/07/20 18:59) Ua Culture If Indicated (10/07/20 18:59) Ed Iv/Invasive Line Start (10/07/20 18:59) Ns Iv 1000 Ml (Sodium Chloride 0.9%) (10/07/20 19:00) Ondansetron Injection (Zofran Injectio (10/07/20 19:00) Ketorolac Injection (Toradol Injection) (10/07/20 19:00) Fentanyl Inj (Sublimaze Injection) (10/07/20 19:00) Urine Culture (10/07/20 19:00) Medications Given in ED Current Medications Medications Dose Ordered Sig/Helio Route Start Time Stop Time Status Last Admin Dose Admin Fentanyl Citrate 50 mcg ONCE ONCE IVP 10/07/20 19:00 10/07/20 19:01 DC 10/07/20 19:05 50 MCG Ketorolac Tromethamine 15 mg ONCE ONCE IVP 10/07/20 19:00 10/07/20 19:01 DC 10/07/20 19:06 15 MG Ondansetron HCl 8 mg ONCE ONCE IVP 10/07/20 19:00 10/07/20 19:01 DC 10/07/20 19:05 8 MG Vital Signs/I&O 10/07/20 18:54 Temp 36.6 Pulse 77 Resp 16 B/P (MAP) 125/81 (96) Pulse Ox 97 O2 Delivery Room Air Departure Communication (Admissions) 1936-her pain is down to a 1 at this point. Nausea is gone. I will discharge her home with Zofran and hydrocodone and write her an order for an outpatient gallbladder ultrasound tomorrow. I discussed with her that she would need to c all insurance beforehand and if they require prior authorization then this order would need to be rewritten by her family doctor, Dr. Khoury. However if they do not require it then my order will suffice. 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 They agree with this plan. I did offer her a CT at this point but I feel it is an unnecessary exposure to the radiation, unnecessary cost and will likely add little value to our treatment plan. We are all in agreement to forego the CT at this time and proceed with outpatient gallbladder ultrasound tomorrow. Impression Primary Impression: RUQ pain Disposition: HOME, SELF-CARE Condition: Stable Departure-Patient Inst. Decision time for Depature: 19:38 Referrals: SELFESTHELA MD (PCP) Primary Care Physician VIVIANA PULIDO MD (Family) Primary Care Physician RINKU SYKES BRETT D DO KIDO, TAKAAKI MD Patient Instructions: Abdominal Pain, Adult ED Add. Discharge Instructions: I too suspect that your pain is related to sludge or stones within the gallbladder. Return to the emergency room for any intolerable pain fevers or vomiting. Use the nausea medication and the pain medication as directed. I have written the order for the outpatient ultrasound tomorrow. However, as you know, sometimes insurance requires a prior authorization. Call your insurance company in the morning to see if they need prior authorization for this outpatient gallbladder ultrasound. If they do the order will need to be written by Dr. Khoury. If they do not, then my order will suffice and you can proceed with calling the schedule department which is highlighted in [place] on the discharge paper. All discharge instructions reviewed with patient and/or family. Voiced understanding. Scripts Ondansetron (Ondansetron Odt) 8 Mg Tab.rapdis 8 MG PO Q6H PRN for NAUSEA/VOMITING, #10 TAB Prov: DANIELLE WAGNER APRN 10/07/20 Oxycodone HCl (Oxycodone HCl) 5 Mg Tablet 5 MG PO Q4H PRN for NAUSEA/VOMITING, #14 TAB Prov: DANIELLE WAGNER APRN 10/07/20 Copy Copies To 1: ESTHELA KHOURY MD, PETER J APRN Oct 07, 2020 19:04
[2020-10-07 19:05] LABS: BILIRUBIN,URINE NEGATIVE (NEGATIVE); CLARITY,URINE CLEAR; COLOR,URINE YELLOW; GLUCOSE, URINE (UA) NEGATIVE (NEGATIVE); KETONES,URINE NEGATIVE (NEGATIVE); LEUKOCYTE ESTERASE ,URINE 1+ (NEGATIVE); NITRITE,URINE NEGATIVE (NEGATIVE); PROTEIN,URINE NEGATIVE (NEGATIVE)
[2020-10-07 19:10] LABS: BASOPHILS % (AUTO) 0 % (0-10); EOSINOPHILS # (AUTO) 0.3 10^3/uL (0.0-0.3); EOSINOPHILS % (AUTO) 3 % (0-10); HEMATOCRIT 40 % (35-52); HEMOGLOBIN 13.4 g/dL (11.5-16.0); LYMPHOCYTES # (AUTO) 2.1 10^3/uL (1.0-4.0); LYMPHOCYTES % (AUTO) 19 % (12-44); MEAN CORPUSCULAR HEMOGLOBIN 29 pg (25-34); MEAN CORPUSCULAR HGB CONC 33 g/dL (32-36); MEAN CORPUSCULAR VOLUME 86 fL (80-99); MEAN PLATELET VOLUME 11.5 fL (9.0-12.2); MONOCYTES # (AUTO) 0.5 10^3/uL (0.0-1.0); MONOCYTES % (AUTO) 5 % (0-12); NEUTROPHILS # (AUTO) 8.1 10^3/uL (1.8-7.8); NEUTROPHILS % (AUTO) 73 % (42-75); PLATELET COUNT 285 10^3/uL (130-400); WHITE BLOOD COUNT 11.1 10^3/uL (4.3-11.0)
[2020-10-07 19:13] LABS: BACTERIA,URINE FEW /HPF
[2020-10-07 19:14] LABS: SQUAMOUS EPITHELIAL CELL,UR 0-2 /HPF
[2020-10-07 19:17] LABS: ALBUMIN 3.9 GM/DL (3.2-4.5)
[2020-10-07 19:18] LABS: CHLORIDE 105 MMOL/L (98-107); POTASSIUM 3.6 MMOL/L (3.6-5.0); SODIUM 141 MMOL/L (135-145)
[2020-10-07 19:19] LABS: CALCIUM 8.9 MG/DL (8.5-10.1)
[2020-10-07 19:20] LABS: GLUCOSE 97 MG/DL (70-105); TOTAL PROTEIN 7.1 GM/DL (6.4-8.2)
[2020-10-07 19:21] LABS: CARBON DIOXIDE 23 MMOL/L (21-32)
[2020-10-07 19:22] LABS: BILIRUBIN,TOTAL 0.3 MG/DL (0.1-1.0)
[2020-10-07 19:23] LABS: ALKALINE PHOSPHATASE 85 U/L (40-136)
[2020-10-07 19:24] LABS: GFR ESTIMATED > 60
[2020-10-07 19:25] LABS: BUN/CREATININE RATIO 13
[2020-10-07 19:27] LABS: ALANINE AMINOTRANSFERASE 59 U/L (0-55); LIPASE 25 U/L (8-78)
[2020-10-07] MEDS ORDERED: OXYC5TAB PO (19:42)
[2020-10-07] MEDS ORDERED: ONDA8TAB13 PO (19:44)
[2020-10-07] MEDS ORDERED: RX-ONDANSETRON 4 MG ODT (ZOFRAN) PPK #4 PO STA (19:45)
[2020-10-07 19:56] VITALS: BP 110/67
== END 2020-10-07 19:56 | disposition home or self-care (01) ==
LOC: EDUNIT# 18:50 → ER 18:52
DX: R10.11 Right upper quadrant pain (principal)
CPT/HCPCS: 36415; 80053; 81000; 83690; 85025; 87088; 96374; 96375

== ENCOUNTER 2020-10-17 09:51 | Outpatient (CLI) | payer BC ==
[~2020-10-17] VITALS: Ht 172.7 cm; Wt 100.9 kg
[~2020-10-17 09:51] MED LIST changes: +ONDA8TAB13 PO; +OXYC5TAB PO
[2020-10-18] MEDS ORDERED: HYDR-3817 PO (12:25)
== END 2020-10-17 10:39 | disposition home or self-care (01) ==
LOC: PREOP 09:51
PROVIDERS: ATTEND Surgery
DX: Z01.818 Encounter for other preprocedural examination (principal)

== ENCOUNTER 2020-10-18 11:31 | Day surgery (SDC) | payer BC ==
[2020-10-18] VITALS (12 sets, daily range): BP systolic 103–133; BP diastolic 66–83
[~2020-10-18] VITALS: Ht 172 cm; Wt 100.9 kg
[2020-10-18] MEDS ORDERED: fentaNYL INJ 100 MCG/2 ML AMP ONE (12:00)
[2020-10-18] MEDS ORDERED: MIDAZOLAM 2 MG/2 ML (VERSED) VIAL ONE (12:00)
[2020-10-18] MEDS ORDERED: SEVOFLURANE (ULTANE) 15 ML INHAL SOLN ONE (12:00)
[2020-10-18] MEDS ORDERED: LIDOCAINE PF 2% 5 ML (XYLOCAINE) VIAL ONE (12:00)
[2020-10-18] MEDS ORDERED: ROCURONIUM 10 MG/ML 5 ML SYRINGE IV ONE (12:00)
[2020-10-18] MEDS ORDERED: proPOfol 200 MG/20 ML (DIPRIVAN) VIAL IV ONE (12:00)
[2020-10-18] MEDS ORDERED: ONDANSETRON 4 MG/2 ML (SDV) Z0FRAN ONE (12:00)
[2020-10-18] MEDS: LACTATED RINGERS 1,000 ML IV PRN ×2 (12:07→14:44)
[2020-10-18] MEDS ORDERED: ceFAZolin 2 GM IV Premixed 50 ML IV ONE (12:15)
[2020-10-18] MEDS ORDERED: LIDOCAINE/EPI 1%-1:100,000 (XYLOCAINE) 20ML ONE (12:16)
--- NOTE | 2020-10-18 12:23 | Progress Note-Pre Operative ---
Pre-Operative Progress Note H&P Reviewed The H&P was reviewed, patient examined and no changes noted. Date Seen by Provider: Oct 18, 2020 Time Seen by Provider: 12:00 Date H&P Reviewed: Oct 18, 2020 Time H&P Reviewed: 12:00 Pre-Operative Diagnosis: sx chronic calculous cholecystitis LUCIUS SPENCER MD Oct 18, 2020 12:23
[2020-10-18] MEDS ORDERED: HYDR-3817 PO (12:25)
--- NOTE | 2020-10-18 12:25 | Discharge Inst-Surgical ---
D/C Lap Instructions-JOHANNA New, Converted, or Re-Newed RX: RX on Chart Follow Up Appt in 2 weeks Activity as tolerated No driving for 24 hours No driving while on pain medications Incentive Spirometry use every 2 hours while awake Regular Diet Symptoms to Report: Fever over 101 degree F, Nausea/Vomiting Infection Signs and Symptoms to report: Increased redness, Foul odor of wound, Increased drainage Bathing instructions: May shower Operative Area Clean/Dry; Keep incision clean/dry If any problems/questions: Contact your physician or go to Emergency Room LUCIUS SPENCER MD Oct 18, 2020 12:25
[2020-10-18] MEDS ORDERED: morphine INJ 10 MG/ML 1ML (SYR OR VIAL) IVP PRN ×2 (12:30)
[2020-10-18] MEDS ORDERED: ACETAMINOPHEN 325 MG TABLET PO PRN (12:30)
[2020-10-18] MEDS ORDERED: ONDANSETRON 4 MG/2 ML (SDV) Z0FRAN IVP PRN ×2 (12:30→15:15)
[2020-10-18] MEDS ORDERED: SUCCINYLCHOLINE INJ 100 MG/5 ML SYR/VIAL ONE (14:02)
[2020-10-18] MEDS ORDERED: GLYCOPYRROLATE 0.2 MG/ML (ROBINUL) 2 ML VIAL ONE (14:46)
[2020-10-18] MEDS ORDERED: NEOSTIGMINE 3 MG/3 ML VIAL ONE (14:46)
[2020-10-18] MEDS ORDERED: ATROPINE INJ 0.4 MG/ML SDV ONE (15:00)
--- NOTE | 2020-10-18 15:03 | Progress Note-Post Operative ---
Post-Operative Progess Note Surgeon (s)/Blending Tank Tender (s) Surgeon LUCIUS SPENCER MD Blending Tank Tender: dipti landaverde SLEEPING CAR SERVICE ATTENDANT Pre-Operative Diagnosis sx chronic calculous cholecystitis Post-Operative Diagnosis same Procedure & Operative Findings Date of Procedure 10/18/20 Procedure Performed/Findings laparoscopic cholecystectomy Anesthesia Type get Estimated Blood Loss Estimated blood loss (mL): minimal Specimens/Packing Specimens Removed gallbladder LUCIUS SPENCER MD Oct 18, 2020 15:03
[2020-10-18] MEDS ORDERED: HYDROmorphone 2 MG/ML VIAL (DILAUDID) IV ONE (15:15)
[2020-10-18] MEDS ORDERED: morphine INJ 10 MG/ML 1ML (SYR OR VIAL) IVP ONE (15:15)
--- NOTE | 2020-10-18 15:22 | Anesthesia-General Post-Op ---
General Patient Condition Mental Status/LOC: Same as Preop Cardiovascular: Satisfactory Nausea/Vomiting: Absent Respiratory: Satisfactory Pain: Controlled Complications: Absent Post Op Complications Complications None Follow Up Care/Instructions Patient Instructions None needed. Anesthesia/Patient Condition Patient Condition Patient is doing well in PACU, having some abdominal pain which is to be expected, stable vital signs, no apparent adverse anesthesia problems. JULIA NAM DO Oct 18, 2020 15:22
[2020-10-18] MEDS ORDERED: oxyCODONE/APAP 5/325MG (PERCOCET 5) TABLET ONE ×2 (16:15→16:55)
[2020-10-18] MEDS: oxyCODONE/APAP 5/325MG (PERCOCET 5) TABLET PO PRN ×2 (16:17→16:56)
--- NOTE | 2020-10-18 21:51 | OPERATIVE REPORT ---
DATE OF SERVICE: 10/18/2020 ATTENDING PRIMARY CARE PHYSICIAN: Dr. Jerome Khoury. PREOPERATIVE DIAGNOSIS: Symptomatic chronic calculous cholecystitis. POSTOPERATIVE DIAGNOSIS: Symptomatic chronic calculous cholecystitis. PROCEDURE: Laparoscopic cholecystectomy. SURGEON: Lucius Spencer MD ANESTHESIA: General endotracheal. ESTIMATED BLOOD LOSS: Minimal. FINDINGS: Distended gallbladder, multiple small gallstones. DISPOSITION: The patient tolerated the procedure well. INDICATIONS: The patient is a 30-year-old female who is approximately 4 weeks. During her , she developed pain in the right upper abdominal quadrant after eating a meal and this was associated with nausea and vomiting. She reports that she may have had some milder episodes in the past few years; however, she thought this was acid indigestion. She had an ultrasound performed, which showed gallstones. DESCRIPTION OF PROCEDURE: The patient was brought to the operating room, laid supine on the table. After adequate IV pain and sedative medications and general endotracheal intubation, the abdomen was prepped and draped in standard surgical fashion. A 0.5% Marcaine with epinephrine was used to anesthetize the overlying skin in left upper abdominal quadrant and a transverse skin incision made using a 15 blade. An 0 silk suture was applied to the medial aspect of the incision for retraction and a Veress needle inserted with a low opening pressure of 0 mmHg and the abdomen was insufflated to 15 mmHg pressure. The Veress needle removed and a 5 mm XL trocar placed followed by a 5 mm 45-degree angle laparoscope visualizing the peritoneal cavity. A 4-quadrant abdominal exploration was performed. There was a slightly distended gallbladder, no gallbladder wall thickening. Under direct visualization, we then proceed to place a supraumbilical 10 mm port after the skin and peritoneal lining were anesthetized using 0.5% Marcaine with epinephrine and a transverse skin incision made using a 15 blade. In a similar manner, a right upper abdominal quadrant 5 mm port was placed. The patient was then placed in reverse Trendelenburg position as well as plane right side up, left side down. The fundus of the gallbladder was then retracted anteriorly and superiorly. The hepatoduodenal ligament was then dissected with blunt dissection as well as electrocautery and hook instrument as well as a [place] dissector. The entire critical view of safety was identified including the triangle of Calot as well as the cystic duct and artery as only two structures going to the gallbladder as well as the cystic plate behind the proximal gallbladder. A timeout was then taken, and the cystic duct and artery were then clipped proximally and distally and cut with EndoShears. The gallbladder was then dissected off the liver bed using cautery with visualization of good hemostasis as well as no leaking ducts of Luschka. The gallbladder was removed through the 10 mm port site using an EndoCatch bag. The 10 mm port site fascia and peritoneum were then closed under direct visualization using a Dionicio-Becca device and 0 Vicryl suture. The abdomen was then desufflated and the remaining ports removed. All skin incisions were closed using 4-0 Monocryl running subcuticular sutures. Wounds were then cleaned and covered with Dermabond. The patient tolerated the procedure well. We will start IV normal pain medication as well as a clear liquid diet. Once she is tolerating clears, has good pain control with oral pain medications, is ambulating well, we will discharge her home. She will be instructed to do no heavy lifting or exertion for the next two weeks. Job ID: [id number] DocumentID: [id number] Dictated Date: 10/18/2020 15:10:30 Minister Helper Date: 10/18/2020 21:51:07 Dictated By: LUCIUS SPENCER MD
== END 2020-10-18 17:30 ==
LOC: SDC 11:31
PROVIDERS: ATTEND Surgery
DX: K80.12 Calculus of gallbladder with acute and chronic cholecystitis without obstruction (principal); E66.9 Obesity, unspecified; Z68.34 Body mass index [BMI] 34.0-34.9, adult; Z79.899 Other long term (current) drug therapy
CPT/HCPCS: 84703; 87081